=== PATIENT | male | born 1965 | race Hispanic/Latino ===

== ENCOUNTER 2018-05-11 13:15 | Observation (INO) | payer SELFPAY ==
[~2018-05-11] VITALS: Ht 182.9 cm; Wt 84.0 kg
[2018-05-11 13:33] LABS: BASOPHILS % (AUTO) 0.5 % (0.0-5.0); EOSINOPHILS % (AUTO) 4.6 % (0.0-8.0); HEMATOCRIT 48.2 % (42-54); LYMPHOCYTES % (AUTO) 22.7 % (21.0-51.0); MEAN CORPUSCULAR HEMOGLOBIN 30.8 pg (27.0-33.0); MEAN CORPUSCULAR HGB CONC 34.1 g/dL (32.0-36.0); MEAN CORPUSCULAR VOLUME 90.3 fL (79-99); MONOCYTES % (AUTO) 7.4 % (3.0-13.0); NEUTROPHILS % (AUTO) 64.8 % (40.0-77.0); PLATELET COUNT (AUTO) 241 K/uL (130-400); RED BLOOD CELL COUNT(AUTO) 5.34 MIL/uL (4.50-6.20); RED CELL DISTRIBUTION WIDTH 13.2 % (11.0-15.5)
[2018-05-11 13:45] LABS: POTASSIUM 4.2 mmol/L (3.5-5.1)
[2018-05-11 13:46] LABS: INR 1.01 (0.85-1.15); PARTIAL THROMBOPLASTIN TIME 28.2 SEC (26.3-35.5); PROTHROMBIN TIME 10.6 SEC (9.6-11.6)
[2018-05-11 13:49] LABS: ALBUMIN 4.1 g/dL (3.5-5.0); BILIRUBIN,TOTAL 0.7 mg/dL (0.2-1.0); TOTAL PROTEIN, SERUM 7.3 g/dL (6.0-8.3)
[2018-05-11] MEDS ORDERED: ASPIRIN 325 MG TABLET ONE (14:00)
[2018-05-11] MEDS ORDERED: NITROGLYCERIN 1GM/1 INCH PACKET TD ONE (14:01)
[2018-05-11] MEDS: ENOXAPARIN SODIUM 30 MG/0.3 ML SQ SCH (15:16)
[2018-05-11] MEDS ORDERED: SODIUM CHLORIDE 0.9% 10 ML VIAL IVP PRN (15:30)
[2018-05-11] MEDS ORDERED: ENOXAPARIN SODIUM 30 MG/0.3 ML SQ ONE (18:08)
[2018-05-11 20:06] LABS: APPEARANCE,URINE Clear (CLEAR); BILIRUBIN,URINE Negative (NEGATIVE); COLOR,URINE Yellow (YELLOW); GLUCOSE, URINE (UA) Negative (NEGATIVE); KETONES,URINE Negative (NEGATIVE); LEUKOCYTE ESTERASE ,URINE Negative (NEGATIVE); NITRATE,URINE Negative (NEGATIVE); OCCULT BLOOD,URINE Negative (NEGATIVE); PROTEIN,URINE Negative (NEGATIVE); UROBILINOGEN,URINE 0.2 mg/dL (0.2-1.0)
[2018-05-11] MEDS: METOPROLOL TARTRATE 50 MG TAB PO SCH (21:00)
[2018-05-11] MEDS ORDERED: NITROGLYCERIN 1GM/1 INCH PACKET TD SCH (22:00)
[2018-05-11] MEDS ORDERED: TRAMADOL HCL 50 MG TABLET ONE (23:47)
[2018-05-12 00:50] VITALS: BP 129/64
[2018-05-12 01:32] LABS: CREATINE KINASE, TOTAL 43 U/L (21-232); MYOGLOBIN 34 ng/mL (10-92); TROPONIN I < 0.04 ng/mL (0.00-0.06)
[2018-05-12] MEDS ORDERED: TRAMADOL HCL 50 MG TABLET PO PRN (03:30)
[2018-05-12 04:00] VITALS: BP 140/71
[2018-05-12] MEDS: NITROGLYCERIN 1GM/1 INCH PACKET TD SCH ×2 (06:27→15:16)
[2018-05-12] MEDS ORDERED: REGADENOSON 0.4 MG/5 ML PF SYG IVP SCH (06:30)
[2018-05-12] MEDS ORDERED: PROP80TA4 PO (06:39)
[2018-05-12 07:31] LABS: CREATINE KINASE, TOTAL 40 U/L (21-232); MYOGLOBIN 36 ng/mL (10-92); TROPONIN I < 0.04 ng/mL (0.00-0.06)
[2018-05-12] MEDS: METOPROLOL TARTRATE 50 MG TAB PO SCH (09:00)
[2018-05-12] MEDS ORDERED: ASPIRIN 325 MG TABLET PO SCH (09:00)
[2018-05-12] MEDS: ENOXAPARIN SODIUM 30 MG/0.3 ML SQ SCH (10:29)
--- NOTE | 2018-05-12 11:37 | NUR ---
DC PLAN VISITED WITH PATIENT. PATIENT LIVES WITH SPOUSE. INDEPENDENT ABLE TO PERFORM ADL'S. PATIENT HAS NO SERVICES OR DME'S. FEELS SAFE TO RETURN HOME. Addendum: 05/12/18 at 1137 by ROXANN WALKER RN CM Amended: Links added.
[2018-05-12 12:00] VITALS: BP 130/80
--- NOTE | 2018-05-12 15:30 | NUR ---
CARDIOLOGY CONSULT SPOKE TO DR. RUSSELL OVER THE PHONE. EXPLAINED THE REASON FOR THE CONSULT AND INFORMED HIM OF THE MARQUES SCAN RESULTS, AND TROPONIN LEVELS. DR. RUSSELL STATED "DR. WERNER DID ALREADY ALL THE WORK UP, THIS PATIENT CAN BE DISCHARGED AND FOLLOW UP IN 1 WEEK AT MY OFFICE. TELL DR. WERNER TO CALL ME IF HE STILL WANTS THE CONSULT".
[2018-05-12 16:00] VITALS: BP 135/85
--- NOTE | 2018-05-12 16:00 | NUR ---
D/C ORDERS CALLED DR. WERNER AND REPEATED WHAT DR. RUSSELL TOLD ME. PER DR. WERNER, THE PATIENT CAN F/U WITH HIM IN 3-4 DAYS AND F/U WITH CARDIOLOGY IN 1 WEEK.
--- NOTE | 2018-05-12 18:08 | NUR ---
DISCHARGE PATIENT GIVEN DISCHARGE INSTRUCTIONS AND EDUCATION ON CHEST PAIN AND FOLLOW UP APPOINTMENTS. PATIENTS VERBALIZED UNDERSTANDING OF ALL EDUCATION GIVEN VIA TEACH BACK. NO CONCERNS VOICED. IV DISCONTINUED, CATHETER INTACTACT. HEART MONITOR D/C TELE MONITOR AWARE. NO DISTRESS NOTED UPON DISCHARGE. ALL BELONGINGS TAKEN WITH. PATIENT LEFT VIA WHEELCHAIR TO PRIVATE CAR. PCP AND FAMILY AT SIDE. PER DR. WERNER, NO NEW PRESCRIPTIONS TODAY, UNTIL SEEN AT THE OFFICE.
== END 2018-05-12 18:30 | disposition home or self-care (01) ==
LOC: EDH 13:15 → EDHIP 14:53 → 3BH 23:31
PROVIDERS: ADMIT Family Medicine; ATTEND Family Medicine
DX: R07.89 Other chest pain (principal); R42 Dizziness and giddiness; E78.5 Hyperlipidemia, unspecified; I10 Essential (primary) hypertension
CPT/HCPCS: 36415 ×2; 71045; 78452; 80053; 81003; 82550 ×3; 83874 ×2; 84484 ×4; 85025; 85610; 85730; 93005; 93017; 96372; 99284; A9500 ×2; G0378 ×28; J1650 ×2; J2785; 96374